=== PATIENT | male | born 1960 ===

== ENCOUNTER 2021-12-26 07:30 | Emergency (ER) | payer OTHER ==
[2021-12-26] MEDS ORDERED: Sodium Chloride 0.9% 2.5 ML Syringe FLUSH PRN (07:52)
[2021-12-26] MEDS ORDERED: Acetaminophen 500 MG Tab PO ONE (07:52)
[2021-12-26] MEDS ORDERED: Ondansetron 4 MG/2 ML SDV IVPUSH ONE (07:52)
[2021-12-26] MEDS ORDERED: Sodium Chloride 0.9% 10 ML Syringe FLUSH PRN (07:52)
[2021-12-26] MEDS ORDERED: Sodium Chloride 0.9% 1,000 ML IV ONE (07:52)
[2021-12-26] MEDS ORDERED: Ketorolac 30 MG/ML SDV IVPUSH ONE (07:54)
[2021-12-26 08:45] LABS: CARBON DIOXIDE,CO2 25.8 mmol/L (21.0-32.0); POTASSIUM,K 4.3 mmol/L (3.5-5.1)
[2021-12-26 08:51] LABS: CORONAVIRUS COVID-19 NAA NEGATIVE (NEGATIVE); INFLUENZA A NAA POSITIVE (NEGATIVE); INFLUENZA B NAA NEGATIVE (NEGATIVE)
[2021-12-26] MEDS ORDERED: Oseltamivir 75 MG Cap PO ONE (09:24)
== END 2021-12-26 10:07 | disposition home or self-care (01) ==
LOC: MW.ED 07:30
DX: J10.1 Influenza due to other identified influenza virus with other respiratory manifestations (principal)
CPT/HCPCS: 0240U; 36415; 71045; 80053; 81001; 85025; 93005; 96374; 96375; 99284; A9270; J1885; J2405; J7030; 93010; 99283